=== PATIENT | male | born 1955 | race Caucasian/White ===

== ENCOUNTER 2020-04-23 13:10 | Outpatient (CLI) | payer MEDICARE, SELFPAY ==
--- NOTE | ~2020-04-23 | XR_ITS ---
EXAMINATION: XR abdomen/kub 1V EXAM DATE: 04/23/2020 13:47 INDICATION: Right-sided kidney stone. TECHNIQUE: Frontal projection(s) of the abdomen for interpretation. There is no prior study for lew kwok. FINDINGS: There is a 4 mm calcification projecting between the right L4 and L5 transverse processes, could be a ureteral stone (there is no CT scan available for correlation). There is a 3 mm calcifica tion projecting over the lower pole of the left kidney which could be inferior calyceal stone. Pelvic calcifications are probably phleboliths. Nonobstructive bowel gas pattern. There are bony degenerati ve changes. IMPRESSION: 1. Possible right mid ureteral 4 mm stone. 2. Probable left nephrolithiasis. Reviewed, dictated and finalized at location A.
== END 2020-04-23 13:11 | disposition home or self-care (01) ==
PROVIDERS: Visit Provider Urology
DX: N20.0 Calculus of kidney (principal)
CPT/HCPCS: 74018

== ENCOUNTER 2020-05-09 13:43 | Outpatient (CLI) | payer MEDICARE, SELFPAY ==
--- NOTE | ~2020-05-09 | XR_ITS ---
XR abdomen/kub 1V 05/09/2020 14:14 INDICATION: Right ureteral stone TECHNIQUE: KUB COMPARISON: 04/23/2020 FINDINGS: Bowel gas pattern is normal. There is no evidence of free air, mass, organomegaly, ascites or obstruction. There is a lower pole stone in the left kidney. Calcifications in the pelvis are bel ieved to be phleboliths. The bones appear intact. IMPRESSION: 1: Left nephrolithiasis. Reviewed, dictated and finalized at location A. IMPRESSION: 1: Left nephrolithiasis.
== END 2020-05-09 13:44 | disposition home or self-care (01) ==
PROVIDERS: Visit Provider Urology
DX: N20.0 Calculus of kidney (principal)
CPT/HCPCS: 74018

== ENCOUNTER 2020-10-28 09:19 | Outpatient (CLI) | payer MEDICARE, SELFPAY ==
--- NOTE | ~2020-10-28 | XR_ITS ---
EXAMINATION: XR abdomen/kub 1V EXAM DATE: 10/28/2020 09:35 INDICATION: Left kidney stone. TECHNIQUE: Frontal projection of the upper abdomen, frontal projection lower abdomen/pelvis for inter pretation. Comparison is made to prior examination from 05/09/2020. FINDINGS: There is expected amount of colonic stool and gas. No small bowel dilation, nonobstructiv e bowel gas pattern. There are no suspicious calcifications identified. Calcific density projecting over the left sacral Thu probably bone island or vascular. Possible punctate left nephrolithiasis. There is no organomegaly suspected. The bones are unremarkable. There is no free intraperitoneal air. The lung bases are clear. IMPRESSION: Possible punctate left nephrolithiasis. Reviewed, dictated and finalized at location A.
== END 2020-10-28 09:20 | disposition home or self-care (01) ==
LOC: ANHIMG 09:25
PROVIDERS: Visit Provider Urology
DX: N20.0 Calculus of kidney (principal)
CPT/HCPCS: 74018